=== PATIENT | male | born 1940 | race Caucasian/White ===

== ENCOUNTER → 2019-01-15 | Outpatient (CLI) | payer MEDICARE ==
[~2019-01-15] MED LIST: CAND32; GLIM4 PO; LOSA50 PO; LOSHYD100 PO; METF500 PO; MULVITMIND PO; PIOG15; SIMV20; SIMV40 PO
[2019-01-16 13:35] LABS: Stool Occult Bld Immuno 1 Negative (NEGATIVE); Stool Occult Bld Immuno 2 Negative (NEGATIVE)
== END | disposition home or self-care (01) ==
LOC: LAB EV 09:30
PROVIDERS: Family Medicine
DX: K57.30 Diverticulosis of large intestine without perforation or abscess without bleeding (principal); Z86.010 Personal history of colon polyps
CPT/HCPCS: 82274

== ENCOUNTER → 2023-05-23 | Outpatient (CLI) | payer MEDICARE | END | disposition home or self-care (01) | LOC: LAB 13:40 → LAB SHORT 13:40 | DX: N39.0 Urinary tract infection, site not specified (principal) | CPT/HCPCS: 87077; 87086; 87186 ==